=== PATIENT | female | born 1995 | race Caucasian/White ===

== ENCOUNTER 2019-02-07 19:13 | Emergency (ER) | payer BC, OTHER | END 2019-02-07 21:00 | disposition home or self-care (01) | LOC: EEVIPCON 19:13 → ERS 19:13 | DX: O99.89 Other specified diseases and conditions complicating pregnancy, childbirth and the puerperium (principal); M26.602 Left temporomandibular joint disorder, unspecified; O99.512 Diseases of the respiratory system complicating pregnancy, second trimester; J45.909 Unspecified asthma, uncomplicated; O99.332 Smoking (tobacco) complicating pregnancy, second trimester; F17.210 Nicotine dependence, cigarettes, uncomplicated; O99.342 Other mental disorders complicating pregnancy, second trimester; F41.9 Anxiety disorder, unspecified; Z3A.19 19 weeks gestation of pregnancy | CPT/HCPCS: 99282 ==

== ENCOUNTER 2019-04-18 16:24 | Emergency (ER) | payer BC, OTHER | END 2019-04-18 17:55 | disposition home or self-care (01) | LOC: ERS 16:24 | DX: O99.89 Other specified diseases and conditions complicating pregnancy, childbirth and the puerperium (principal); H66.92 Otitis media, unspecified, left ear; O99.512 Diseases of the respiratory system complicating pregnancy, second trimester; J45.909 Unspecified asthma, uncomplicated; O99.342 Other mental disorders complicating pregnancy, second trimester; F41.9 Anxiety disorder, unspecified; Z87.891 Personal history of nicotine dependence; Z3A.28 28 weeks gestation of pregnancy | CPT/HCPCS: 99283 ==

== ENCOUNTER 2019-05-02 16:46 | Day surgery (SDC) | payer BC, OTHER ==
[2019-05-02 17:17] VITALS: BMI 36.5
[2019-05-02] MEDS ORDERED: hydrALAZINE 20 MG/ML VIAL SLOW IVP PRN (17:42)
[2019-05-02 17:56] LABS: #Eosinphils 0.1 thou/uL (0.0-0.7); #Lymphocytes 2.6 thou/uL (1.20-3.40); #Monocytes 0.5 thou/uL (0.11-0.59); #Neutrophils 6.7 thou/uL (1.40-6.50); %Basophils 0.4 % (0.0-1.0); %Eosinophils 0.9 % (0.0-10.0); %Lymphocytes 26.3 % (21.0-51.0); %Monocytes 4.9 % (0.0-10.0); %Neutrophils 67.5 % (42.0-75.0); Hemoglobin 11.5 g/dL (12.0-16.0); Mean Corpuscular HGB CONC 34.9 g/dL (32.0-36.0); Mean Corpuscular Hemoglobin 31.3 pg (27.0-31.0); Mean Corpuscular Volume 89.8 fL (78.0-98.0); Mean Platelet Volume 7.6 fL (7.4-10.4); Platelet Count 211 thou/uL (130-400); RBC Distribution Width 11.7 % (11.5-14.5); Red Blood Cell (RBC) Count 3.67 mill/uL (4.20-5.40); White Blood Cell (WBC) Count 9.9 thou/uL (4.8-10.8)
--- NOTE | 2019-05-02 18:11 | HP ---
TIME OF EVALUATION: 1735 hours. LOCATION: Labor and Delivery Triage in bed A. REASON FOR EVALUATION/CHIEF COMPLAINT: Here for BP observation from Dr. Davis's office. HISTORY OF PRESENT ILLNESS: This is a 24-year-old , G2, P1 with an EGA of 30 weeks and 3 days with an EDC of July 08, 2019. She is here because her blood pressure in the office with Dr. Davis was 140s/80s. The patient states that she has been taking her blood pressure at home and in there, about 150s over 80s to 90s. She denies headache, right upper quadrant pain, vaginal bleeding, contractions, leakage of fluid, and she has good movement. She states that she was taking aspirin early on in the , but she stopped due to nosebleed and did not resume. PAST MEDICAL HISTORY: Significant for asthma, migraines, and anxiety. MEDICATIONS: None. PAST SURGICAL HISTORY: Tonsil and adenoids. ALLERGIES: NONE. SOCIAL HISTORY: Negative for alcohol, tobacco, and drug use. PHYSICAL EXAMINATION: VITAL SIGNS: Her blood pressure is 139/75 and 129/71. Pulse is normal in the 90s and she is afebrile. Respirations are 16 to 18, and they are not labored. I evaluated the patient at bedside and find her in no acute distress. ABDOMEN: Soft and nontender. CERVICAL: Exam was deferred. There is no labor complaint. On monitor, heart tones are in the 130s to 140s and are compatible with a 30-week gestation (moderate variability and small accelerations). There was one isolated minor variable deceleration that was not recurrent. There were no contractions on tocodynamometer. Interventions ordered. I have ordered a CBC, CMP, urine protein-creatinine ratio, serial blood pressures. ASSESSMENT: This is a 24-year-old G2, P1, at 38 weeks and 3 days with likely gestational hypertension versus other. There is no evidence of severe criteria at this time. PLAN: 1. Blood pressure management reviewed with her. 2. I discussed with her the ACOG indications for delivery due to blood pressure (severe criteria). 3. I have discussed with her the labs ordered and reason why. 4. Blood pressure observation for now. If there is not severe criteria, we could likely follow her up as an outpatient. Job ID: [id number]
[2019-05-02 18:19] LABS: ALT (SGPT) 11 U/L (8-55); AST (SGOT) 14 U/L (5-34); Albumin 3.3 g/dL (3.5-5.0); Alkaline Phosphatase 70 U/L (40-110); Anion Gap 12 mmol/L (10-20); BUN (Urea Nitrogen) 4 mg/dL (7.0-18.7); Bilirubin, Total 0.7 mg/dL (0.2-1.2); Calc. Creatinine Clearance 221 mL/min (70-130); Calcium 8.4 mg/dL (7.8-10.44); Carbon Dioxide 23 mmol/L (22-29); Chloride 105 mmol/L (98-107); Estimated GFR-MDRD Greater than 90; Glucose 78 mg/dL (70-105); Potassium 3.3 mmol/L (3.5-5.1); Protein, Total 6.3 g/dL (6.0-8.3); Sodium 137 mmol/L (136-145)
--- NOTE | 2019-05-02 19:35 | PDOC.EVN ---
Event Note - Event Note Event Note: BPs all ok labs ok Check U protein/CR result as outpatient
[2019-05-02 20:22] LABS: Creatinine, Urine 30.73 mg/dL (47-110); Protein, Urine Random Quant Less than 10 mg/dL (1-14)
[2019-05-03] MEDS ORDERED: FLU VACC QS2019-20(6MOS UP)/PF 60 MCG/0.5 ML SYRINGE IM ONE (09:00)
== END 2019-05-02 20:00 | disposition home or self-care (01) ==
LOC: L&D/OP 16:46
PROVIDERS: ATTEND Obstetrics & Gynecology
DX: O99.89 Other specified diseases and conditions complicating pregnancy, childbirth and the puerperium (principal); R03.0 Elevated blood-pressure reading, without diagnosis of hypertension; Z3A.30 30 weeks gestation of pregnancy
CPT/HCPCS: 36415; 80053; 82570; 84156; 85025; 99283

== ENCOUNTER 2019-05-03 18:49 | Day surgery (SDC) | payer BC, OTHER ==
[2019-05-03 19:23] VITALS: BP 132/74; TEMP 98.4
[2019-05-03 19:26] VITALS: BMI 36.6
[2019-05-03] MEDS ORDERED: hydrALAZINE 20 MG/ML VIAL SLOW IVP PRN (20:04)
--- NOTE | 2019-05-04 08:20 | SS ---
DATE OF ADMISSION: 05/03/2019 DATE OF DISCHARGE: 05/03/2019 TIME OF SERVICE: 2030 hours. PRESENTING COMPLAINT: Elevated blood pressure to 150/90 at home. HISTORY OF PRESENT ILLNESS: Ms. Walden is a 24-year-old 2, para 1, at 30 weeks and 4 days with ALEXI of 07/08/19. She has a history of preeclampsia with a delivery at 37 weeks of previous . She has been seen by Dr. Davis. She was initially started on baby aspirin daily because of risk of recurrent preeclampsia. However, the patient self discontinued secondary to epistaxis. She was noted in the office on the to be at 148/84, reported some intermittent blood pressures to 140s/50s over 80s to 90s and was sent to Labor and delivery for evaluation on the . Thorough evaluation was carried out at that time, which revealed the patient to be normotensive, normal urine [id number] ratio, normal CBC, normal comprehensive metabolic panel. The patient had one 150/90 at home today and presented to Labor and Delivery. STAFFING OPERATIONS MANAGER HISTORY: As noted. Blood type A positive, antibody negative. Pap negative. Rubella immune. VDRL nonreactive. Hepatitis B, GC, chlamydia negative. The patient has a history of herpes and will be started on acyclovir at 36 weeks for prophylaxis. PAST MEDICAL HISTORY: Significant for migraines and herpes and asthma. PAST SURGICAL HISTORY: None. ALLERGIES: NSAIDS. SOCIAL HISTORY: The patient is a tobacco user outside of . FAMILY HISTORY: Noncontributory. REVIEW OF SYSTEMS: Noncontributory. PHYSICAL EXAMINATION: GENERAL: White female resting comfortably, blood pressure 132/86, pulse 85, respirations 18, temperature 98.6. HEENT: Within normal limits. LUNGS: Clear to auscultation bilaterally. HEART: Regular rhythm. ABDOMEN: Soft, nontender without rebound or guarding. PELVIC: Deferred. EXTREMITIES: No clubbing, cyanosis, or edema. DTRs 1+. The patient has trace pedal edema. Serial monitoring was carried out which revealed a category 1 heart rate tracing. No decelerations, category I. Serial blood pressures reveal blood pressures in the 120s to 130s with diastolics in the 80s. IMPRESSION: Isolated elevated blood pressures at home without any criteria for preeclampsia noted on thorough evaluation less than 24 hours ago. PLAN: Discharge home. Continue BPs at home. ER precautions for severe range blood pressures. Keep scheduled followup with Dr. Davis. Job ID: [id number]
== END 2019-05-03 20:34 | disposition home health service (06) ==
LOC: L&D/OP 18:49
PROVIDERS: ATTEND Obstetrics & Gynecology
DX: O99.89 Other specified diseases and conditions complicating pregnancy, childbirth and the puerperium (principal); R03.0 Elevated blood-pressure reading, without diagnosis of hypertension; O99.513 Diseases of the respiratory system complicating pregnancy, third trimester; J45.909 Unspecified asthma, uncomplicated; O99.343 Other mental disorders complicating pregnancy, third trimester; G43.909 Migraine, unspecified, not intractable, without status migrainosus; Z3A.30 30 weeks gestation of pregnancy; Z87.891 Personal history of nicotine dependence; Z88.6 Allergy status to analgesic agent
CPT/HCPCS: 99282

== ENCOUNTER 2019-05-07 18:33 | Day surgery (SDC) | payer BC, OTHER ==
[2019-05-07 19:03] VITALS: BMI 36.6
[2019-05-07] MEDS ORDERED: hydrALAZINE 20 MG/ML VIAL SLOW IVP PRN (19:19)
[2019-05-07 19:46] LABS: Amnisure Test No Membranes Rupture (No Rupture)
[2019-05-07 19:48] LABS: Amnisure Internal Control QC ACCEPTABLE (ACCEPTABLE)
--- NOTE | 2019-05-07 20:04 | PDOC.LDHP ---
Labor and Delivery H&P Chief complaint: loss of fluid, other (BP check) HPI: 24 y/o at 31w1d, patient of Dr. Davis, presents for BP check and ?LOF. Patient reports a BP of 140s at home. Has been seen several times in the last week for similar issues with no e/o preeclampsia. Also complains of thin, watery discharge that "smells funny" and thinks her water may be broken. Denies VB, ctx, or decreased FM. ROS neg for HEENT, cv, pulm, gi, gu, neuro, psych, skin, musculoskeletal or constitutional symptoms other than mentioned above. OB History Details: 1 prior term complicated by preeclampsia Current complications: other (HSV) Past Medical History: Asthma, HSV, anxiety, migraines Current medications: pre- vitamins Previous surgical history: none Allergies/Adverse Reactions: Allergies Allergy/AdvReac Type Severity Reaction Status Date / Time No Known Allergies Allergy Verified 05/07/19 19:04 Social history: none - Physical Exam Vital signs reviewed and normal: yes General: NAD, resting Lungs: nonlabored breathing Abdomen: gravid Extremeties: no edema FHT: category 1 (140s, mod variability, + accels, no decels) [place] contractions every: none - Vaginal Exam cm dilated: 0 (neg pooling, valsalva) - Assessment 24 y/o at 31w1d with no e/o preeclampsia. All normal BPs here. No e/o SROM (neg amnisure, neg pooling, neg valsalva). VP3 pending. - Plan -: D/c home with precautions. Will notify patient if VP3 results indicated need for treatment. Has appt for , advised to keep.
== END 2019-05-07 20:08 | disposition home or self-care (01) ==
LOC: L&D/OP 18:33
PROVIDERS: ATTEND Obstetrics & Gynecology
DX: O99.89 Other specified diseases and conditions complicating pregnancy, childbirth and the puerperium (principal); R03.0 Elevated blood-pressure reading, without diagnosis of hypertension; O98.513 Other viral diseases complicating pregnancy, third trimester; B00.9 Herpesviral infection, unspecified; Z3A.31 31 weeks gestation of pregnancy
CPT/HCPCS: 84112; 87480; 87510; 87660

== ENCOUNTER 2019-05-08 20:02 | Inpatient (IN) | payer BC, OTHER ==
[2019-05-08 20:38] VITALS: BMI 36.6
[2019-05-08] MEDS ORDERED: hydrALAZINE 20 MG/ML VIAL SLOW IVP PRN (20:53)
[2019-05-08] MEDS ORDERED: Promethazine HCl 25 MG/ML VIAL IM PRN (20:53)
[2019-05-08] MEDS ORDERED: Ondansetron PF 4 MG/2 ML Vial IVP PRN (20:53)
[2019-05-08 21:28] LABS: Amphetamine Not Detected (NotDetected); Barbiturates Screen Not Detected (NotDetected); Benzodiazepine Screen Not Detected (NotDetected); Cocaine Metabolite Screen Not Detected (NotDetected); Medtox Control Line Valid? VALID (VALID); Medtox Reader # READER 1; Methadone Not Detected (NotDetected); Methamphetamine Not Detected (NotDetected); Opiate Screen Not Detected (NotDetected); Oxycodone Screen Not Detected (NotDetected); Phencyclidine (PCP) Not Detected (NotDetected); THC/Cannabinoid Screen Not Detected (NotDetected); Tricyclic Screen Not Detected (NotDetected)
--- NOTE | 2019-05-08 21:40 | HP ---
TIME OF ADMISSION: 2100 hours. REASON FOR ADMISSION: Headache, possible mild early preeclampsia versus gestational hypertension at 31 weeks gestation, repeat presentation to the unit. HISTORY OF PRESENT ILLNESS: Ms. Walden is a 24-year-old 2, para 1, with an EDC of 07/08. She sees Dr. Carolina Davis at [facility]. The patient has serially re-presented to the labor and delivery unit over the past two weeks, complaining of headache, but with objective laboratory and blood pressure findings not consistent with preeclampsia. She presents again this evening, claiming that blood pressure at home was up to 150/100 and she has a mild to moderate headache. She denies scotoma. She denies seizure. Previous evaluations have revealed there do to be a little if any protein in her urine. COURT INTERPRETER HISTORY: Preeclampsia with delivery at 37 weeks of previous . The patient was started on baby aspirin, but stopped in the early second trimester secondary to epistaxis. She also has a history of herpes and we placed on prophylaxis at 36 weeks gestation. Blood type is A positive, antibody negative. Pap negative. Rubella immune. VDRL nonreactive. Hepatitis B, GC, chlamydia negative. Group B strep not done. PAST MEDICAL HISTORY: Significant for migraines and asthma. PAST SURGICAL HISTORY: None. ALLERGIES: NSAIDS. MEDICATIONS: vitamins. SOCIAL HISTORY: Positive history of tobacco use outside of . FAMILY HISTORY: Noncontributory. REVIEW OF SYSTEMS: Noncontributory. PHYSICAL EXAMINATION: GENERAL: White female, resting comfortably. VITAL SIGNS: Temperature 98.8, respirations 18, pulse 92, blood pressures on admission were between 130 and 140 systolic and 80s to 86 diastolic. HEENT: Within normal limits. LUNGS: Clear to auscultation bilaterally. HEART: Regular rate and rhythm. ABDOMEN: Soft, nontender. No rebound or guarding. Vulva without lesions. Vaginal exam deferred. EXTREMITIES: No clubbing, cyanosis, or edema. DTRs 1+. heart rate tracing was carried out for greater than 30 minutes which revealed a category 1 tracing with no decelerations. IMPRESSION: The patient with history of preeclampsia, now at 31 weeks gestation. The patient keeps having elevated blood pressures at home with mild to moderate headaches and a history of migraines, but without objective findings consistent with severe preeclampsia upon presentation to labor and delivery unit. PLAN: Admission, serial blood pressures, ultrasound, 24-hour urine. Tylenol for headache. We will administer magnesium sulfate prophylaxis and betamethasone for lung maturity if signs of true preeclampsia are found during hospitalization. Job ID: [id number]
[2019-05-08] MEDS: Acetaminophen 500 MG TAB PO PRN (22:06)
--- NOTE | 2019-05-08 22:08 | ULT ---
EXAM: Limited OB ultrasound COMPARISON: None HISTORY: female patient. Gestational hypertension. TECHNIQUE: Multiplanar grayscale and color Doppler transabdominal sonographic images are obtained. FINDINGS: There is a single intrauterine gestation in cephalic presentation. Cardiac Doppler demonstr ates heart tones with a heart rate of 141 beats per minute. The placenta is located anteriorly without evidence of placenta previa. Amniotic fluid index measures 8.7 cm which is diminis hed. The cervix is obscured by shadowing from the head. biometry measurements: BPD 7.9 cm -- 31 weeks 5 days HC 29.55 cm -- 32 weeks 5 days AC 28.38 cm -- 32 weeks 3 days FL 6.16 cm -- 32 weeks The estimated gestational age by ultrasound is 32 weeks 2 days with an ALEXI on07/01/2019. Gestational a ge by the last menstrual period is 31 weeks 2 days. The estimated weight by ultrasound is 1931 g (4 pounds, 4 ounces). This represents 70 percentil e for weight. This examination was not performed for evaluation of the anatomical structures. IMPRESSION: 1. Single intrauterine gestation in cephalic presentation with heart tones documented. Estimat ed gestational age by ultrasound is 32 weeks 2 days. 2. Estimated weight is 1931 g (4 pounds, 4 ounces). 3. Amniotic fluid index is diminished measuring 8.7 centimeters.
[2019-05-08 22:20] LABS: Hemoglobin 12.1 g/dL (12.0-16.0); Mean Corpuscular Hemoglobin 30.7 pg (27.0-31.0); Mean Corpuscular Volume 90.4 fL (78.0-98.0); Mean Platelet Volume 8.5 fL (7.4-10.4); Platelet Count 185 thou/uL (130-400); RBC Distribution Width 11.7 % (11.5-14.5); Red Blood Cell (RBC) Count 3.93 mill/uL (4.20-5.40); White Blood Cell (WBC) Count 9.2 thou/uL (4.8-10.8)
[2019-05-08] MEDS ORDERED: Lactated Ringer's 1,000 ML IV SCH (22:30)
[2019-05-08 23:00] LABS: Syphilis Antibody Nonreactive (Nonreactive); Syphilis Antibody Index 0.05 S/CO (<1.00 Non-Reactive)
[2019-05-08 23:11] LABS: ALT (SGPT) 11 U/L (8-55); AST (SGOT) 14 U/L (5-34); Albumin 3.5 g/dL (3.5-5.0); Alkaline Phosphatase 85 U/L (40-110); Anion Gap 14 mmol/L (10-20); BUN (Urea Nitrogen) Less than 4 mg/dL (7.0-18.7); Bilirubin, Total 0.6 mg/dL (0.2-1.2); Calc. Creatinine Clearance 244 mL/min (70-130); Calcium 8.6 mg/dL (7.8-10.44); Carbon Dioxide 24 mmol/L (22-29); Chloride 104 mmol/L (98-107); Estimated GFR-MDRD Greater than 90; Globulin 2.8 g/dL (2.4-3.5); Glucose 80 mg/dL (70-105); Potassium 3.6 mmol/L (3.5-5.1); Protein, Total 6.3 g/dL (6.0-8.3); Sodium 138 mmol/L (136-145)
[2019-05-09 00:29] LABS: HBSAg Index 0.22 S/CO (0-0.99); HIV (1/2) Antibody/Antigen Non-Reactive (NonReactive); HIV 1/2 INDEX 0.12 S/CO (<1.00); Hep B Surf Ag Non-Reactive S/CO (NonReactive)
--- NOTE | 2019-05-09 07:10 | PRG ---
DATE OF SERVICE: 05/09/2019 TIME OF SERVICE: 0655 hours. The patient is resting comfortably. Serial blood pressures on the floor have been less than 140s/90s with most of them in the 110s to 120s over 80s. She denies worsening of her headache. Reports an active fetus. FHTs are 140s. A 24-hour urine collection in progress. Spot urine protein was negative. IMPRESSION: History of preeclampsia at 31 weeks' gestation with history of chronic headaches/migraine with headache. The patient reports severe blood pressures at home, but blood pressures in hospital are within normal limits. PLAN: Continued observation in the [place], finished 24 hour urine. Likely discharge home after a 24-hour urine evaluation with more serial blood pressures. We will check the patient out to Dr. Aguilar for further care at 0800 hours on 05/09. Job ID: [id number]
[2019-05-09] MEDS: Acetaminophen 500 MG TAB PO PRN ×2 (12:14→19:56)
[2019-05-10 06:36] LABS: Urine Total Volume 5025 mL (600-1600)
[2019-05-10 06:49] LABS: Protein, Urine Less than 10 mg/dL (1-14)
--- NOTE | 2019-05-10 07:43 | DIS ---
DATE OF ADMISSION: 05/08/2019 DATE OF DISCHARGE: 05/10/2019 ADMITTING DIAGNOSES: 1. Intrauterine at 31 weeks. 2. History of preeclampsia. 3. Headache. 4. Elevated pressures at home. DISCHARGE DIAGNOSES: 1. Intrauterine at 31 weeks. 2. History of preeclampsia. 3. Headache. 4. Elevated pressures at home. PROCEDURES: None. CONSULTATIONS: None. HOSPITAL COURSE: The patient is a 24-year-old, G2, P1, female with an intrauterine at 31 weeks and history of preeclampsia, presenting with complaints of headache and elevated pressures at home at 150/100. The patient has re-presented twice now to Labor and Delivery with the same complaints. The patient was admitted for 24-hour urine collection and protein and blood pressure monitoring. During her stay, pressures have remained in the normal range with her highest pressure being 124/72. Blood pressure currently is 103/55. Her 24-hour urine collection is back and reports negative protein. This morning, the patient reports she has an appointment with Dr. Davis at 8:15 that we have encouraged that she keep. PHYSICAL EXAMINATION: VITAL SIGNS: Blood pressure is currently 103/55, temperature 98.7, pulse of 93, respiratory rate of 16, and saturating 96% on room air. GENERAL: She appears to be in no acute distress. She is alert and oriented, cooperative and pleasant to interact with. HEENT: Head is normocephalic, atraumatic. PIH labs are all within normal limits including a negative 24-hour urine collection. The patient is being discharged home to see Dr. Davis in clinic this morning to follow up with a plan of care. The patient has no evidence of preeclampsia at this time and anticipate routine follow up. Job ID: [id number]
[2019-05-10 08:05] VITALS: BP 115/66; TEMP 97.8
== END 2019-05-10 08:08 | disposition home or self-care (01) | DRG 833 ==
LOC: L&D/OP 20:02 → L&D 20:45 → 3SW 05-09 01:31
PROVIDERS: ADMIT Obstetrics & Gynecology; ATTEND Obstetrics & Gynecology
DX: O16.3 Unspecified maternal hypertension, third trimester (principal); Z3A.31 31 weeks gestation of pregnancy; G43.909 Migraine, unspecified, not intractable, without status migrainosus; O26.893 Other specified pregnancy related conditions, third trimester
CPT/HCPCS: 36415; 59025; 76815; 80053; 80306; 81003; 84112; 84156; 85027; 86780; 86850; 86900; 86901; 87340; 87389; 87480; 87510; 87660; 99285

== ENCOUNTER 2019-05-14 13:24 | Day surgery (SDC) | payer BC, OTHER ==
[2019-05-14 13:51] VITALS: BP 127/76; TEMP 97.5
[2019-05-14 13:52] VITALS: BMI 36.6
[2019-05-14] MEDS ORDERED: hydrALAZINE 20 MG/ML VIAL SLOW IVP PRN (14:42)
[2019-05-14 15:09] LABS: Bilirubin Negative (Negative); Blood, Urine Negative (Negative); Clarity Clear (Clear); Glucose, Urine (Dipstick) Normal (Negative); Leukocyte 75 Leu/uL (Negative); Nitrite Negative (Negative); Protein, Urine (Dipstick) Negative (Neg-Trace); RBC/HPF 0-3 HPF (0-3); Squamous Epithelial 0-3 HPF (0-3); Urobilinogen Normal mg/dL (Less than 2); WBC/HPF 0-3 HPF (0-3)
[2019-05-14 15:13] LABS: Bacteria/HPF 1+ HPF (None Seen)
[2019-05-14 15:20] LABS: Hemoglobin 12.7 g/dL (12.0-16.0); Mean Corpuscular Hemoglobin 30.5 pg (27.0-31.0); Mean Corpuscular Volume 89.9 fL (78.0-98.0); Mean Platelet Volume 8.1 fL (7.4-10.4); Platelet Count 208 thou/uL (130-400); RBC Distribution Width 11.8 % (11.5-14.5); Red Blood Cell (RBC) Count 4.16 mill/uL (4.20-5.40); White Blood Cell (WBC) Count 10.2 thou/uL (4.8-10.8)
[2019-05-14 15:43] LABS: ALT (SGPT) 13 U/L (8-55); AST (SGOT) 16 U/L (5-34); Albumin 3.5 g/dL (3.5-5.0); Alkaline Phosphatase 94 U/L (40-110); Anion Gap 11 mmol/L (10-20); BUN (Urea Nitrogen) 4 mg/dL (7.0-18.7); Bilirubin, Total 0.6 mg/dL (0.2-1.2); Calc. Creatinine Clearance 236 mL/min (70-130); Calcium 8.8 mg/dL (7.8-10.44); Carbon Dioxide 28 mmol/L (22-29); Chloride 102 mmol/L (98-107); Estimated GFR-MDRD Greater than 90; Globulin 3.3 g/dL (2.4-3.5); Glucose 71 mg/dL (70-105); Potassium 3.6 mmol/L (3.5-5.1); Protein, Total 6.8 g/dL (6.0-8.3); Sodium 137 mmol/L (136-145)
--- NOTE | 2019-05-15 02:02 | SS ---
DATE OF ADMISSION: 05/14/2019 DATE OF DISCHARGE: 05/14/2019 REGULAR PHYSICIAN: Carolina Davis MD CHIEF COMPLAINT: Elevated blood pressure at home. HISTORY OF PRESENT ILLNESS: Ms. Walden is a 24-year-old white G2, P1, with an estimated date of confinement of 07/08/2018, who presents complaining of elevated blood pressures at home. She states the blood pressures are 140s over 90s. She denies visual changes or right upper quadrant pain. Of note is the fact that she sees Dr. Davis and has been here before for similar symptoms. PAST OBSTETRICAL HISTORY: Includes one vaginal delivery at 37 weeks for elevated blood pressures. PAST MEDICAL HISTORY: None. PAST SURGICAL HISTORY: Tonsillectomy. CURRENT MEDICATIONS: vitamins. ALLERGIES: NO KNOWN ALLERGIES. SOCIAL HISTORY: Denies tobacco, alcohol, or drug use. PHYSICAL EXAMINATION: VITAL SIGNS: Serial blood pressures are 127/76, 128/80, 131/79, 127/76, and 124/73. GENERAL: She is pleasant. She is in no acute distress. heart rate tracing is stable. There are no decelerations. No significant uterine contractions were seen. LABORATORY DATA: White count 10.2, hemoglobin and hematocrit are 12.7 and 37.4, and platelet count 208,000. Creatinine 0.62. Total bilirubin 0.6, AST 16, and ALT 13. Urinalysis shows specific gravity of 1.003 with negative protein, normal glucose, negative ketones, negative blood, negative nitrites. ASSESSMENT: 1. A 32 week intrauterine . 2. No evidence of preeclampsia at this time. PLAN: Patient has been dismissed to home. PI precautions were reviewed with her in detail. She has a followup appointment with Dr. Davis this week. Job ID: [id number]
[2019-05-15] MEDS ORDERED: FLU VACC QS2019-20(6MOS UP)/PF 60 MCG/0.5 ML SYRINGE IM ONE (09:00)
== END 2019-05-14 16:14 | disposition home health service (06) ==
LOC: L&D/OP 13:24
PROVIDERS: ATTEND Obstetrics & Gynecology
DX: O99.89 Other specified diseases and conditions complicating pregnancy, childbirth and the puerperium (principal); R03.0 Elevated blood-pressure reading, without diagnosis of hypertension; Z3A.32 32 weeks gestation of pregnancy
CPT/HCPCS: 36415; 80053; 81003; 81015; 85027; 99283

== ENCOUNTER → 2019-05-25 | Day surgery (SDC) | payer BC, OTHER ==
[~2019-05-25] MED LIST: hydrALAZINE 20 MG/ML VIAL SLOW IVP PRN
[2019-05-25 21:09] VITALS: BMI 36.1
--- NOTE | 2019-05-25 21:56 | PDOC.LDHP ---
Labor and Delivery H&P Chief complaint: other (elevated BP) HPI: 4YO @ 33.5 WGA (ALEXI 07/08/19) who presents to L&D for 2 elevated BPs at home with associated headache, dizziness and nausea that began around 17:30 this evening. Reports a h/o gestational HTN with her last and this one and routinely checks her BP 4x/day at home. Began to have a headache around 17:30 which prompted her to check her BP and she noted that it was elevated at 147/92. She waited about 30 minutes and rechecked it and it was still elevated at 138/91 so she called L&D who recommended she come in for an evaluation. Reports her headache has improved since her arrival. Reports regular movement. Denies any LOF or vaginal bleeding but has had increased vaginal discharge over the last several days. Has had regular contractions since Thrusday morning that began to get closer together and stronger over the course of today as well. No RUQ pain, LE edema, chest pain or increased SOB. Current gestational age (weeks): 33 (33.5) Due date: 07/08/19 Grav: 2 Para: 1 Current complications: gestational hypertension Past Medical History: asthma Current medications: pre- vitamins Previous surgical history: none (tonsillectomy and adenoidectomy) Allergies/Adverse Reactions: Allergies Allergy/AdvReac Type Severity Reaction Status Date / Time No Known Allergies Allergy Verified 05/08/19 20:35 Social history: none - Physical Exam Vital signs reviewed and normal: yes General: NAD, resting, breathing through contractions Heart: RRR Lungs: CTAB Abdomen: gravid Extremeties: no edema FHT: category 1 [place] contractions every: was venkata every 3-5 minutes initially but becoming less frequent - Vaginal Exam cm dilated: 0 (0.5) Effacement: 0% Station: -3 - OB Labs GBS: unknown - Plan Plan: observation in L&D -: 24YO @ 33.5 WGA (ALEXI 07/08/19) with a h/o gestational HTN not on any medication who presented to L&D for 2 elevated BPs at home with associated increased frequency and intensity of contractions. Gestational HTN w/ 2 elevated readings at home: - BP has been WNLs since arrival & headache has also improved. - FHTs reassuring with baseline in the 130s & multiple accels noted, reactive NST. - Contractions were initially regular but have spaced out significantly since arrival. - SVE @ 23:39 0.5/TH/H. FFN obtained prior to exam and will send to assess risk for labor. Dispo: Will continue external monitoring for a minimum of 2 hours. Addendum - Attending - Attending Attestation Date/Time: 05/28/19 0818 I personally evaluated the patient and discussed the management with Dr. Kwan I agree with the History, Examination, Assessment and Plan documented above with any addition or exceptions noted below. vitals: 122/74 68 98.0 sve 0.5/th/hi ffn neg BP remain with in normal limits over 2hours of monitoring dc home with precautions f/u with Dr Zaragoza
[2019-05-26 00:18] LABS: FFN Internal QC Analyzer PASS (PASS); FFN Internal QC Cassette PASS (PASS); Fetal Fibronectin Negative (Negative)
--- NOTE | 2019-05-26 00:53 | PDOC.BPN ---
- Brief Progress Note 24YO @ 33.6 WGA (ALEXI 07/08/19) with a h/o gestational HTN not on any medication who presented to L&D for 2 elevated BPs at home with associated increased frequency and intensity of contractions. Gestational HTN w/ 2 elevated readings at home: - BP has been WNLs since arrival FHTs reassuring with baseline in the 130s & multiple accels noted, reactive NST. - Contractions were initially regular but have spaced out significantly since arrival. - SVE @ 23:39 0.5/TH/H. FFN negative so unlikely to go into labor. Dispo: Will send home with instructions to keep follow-up appointment with PCP for 05/28/19 as scheduled.
== END | disposition home or self-care (01) ==
LOC: L&D/OP 20:33
PROVIDERS: ATTEND Obstetrics & Gynecology
DX: O13.3 Gestational [pregnancy-induced] hypertension without significant proteinuria, third trimester (principal); O47.03 False labor before 37 completed weeks of gestation, third trimester; Z3A.33 33 weeks gestation of pregnancy
CPT/HCPCS: 82731

== ENCOUNTER 2019-06-06 15:12 | Day surgery (SDC) | payer BC, OTHER ==
[2019-06-06 15:48] VITALS: BMI 36.9
[2019-06-06 16:06] VITALS: BP 129/72; TEMP 98.7
[2019-06-06] MEDS ORDERED: hydrALAZINE 20 MG/ML VIAL SLOW IVP PRN (17:35)
[2019-06-06] MEDS ORDERED: diphenhydrAMINE 50 MG/ML VIAL IVP PRN (17:36)
[2019-06-06] MEDS ORDERED: Lactated Ringer's 1,000 ML IV SCH (17:45)
[2019-06-06] MEDS: Metoclopramide HCl 10 MG/2 ML VIAL IVP PRN ×2 (18:08→18:51)
--- NOTE | 2019-06-06 19:05 | PRG ---
DATE OF SERVICE: 06/06/2019 PRIMARY OB: Carolina Davis MD CHIEF COMPLAINT: Headache and blurry vision, and elevated blood pressures. HISTORY OF PRESENT ILLNESS: The patient is a 24-year-old, G2, P1 female with an intrauterine at 35 weeks and 3 days, presenting to Labor and Delivery from the house with complaints of headache and blurry vision with blood pressures reported at home in the 140s/90s. The patient had called her office and was sent here for evaluation. The patient reports that she does have chronic headaches, but this one did not feel like a migraine and was feeling a little bit different. She denies any fever. She denies chest pain or shortness of breath. The patient did have some nausea with one episode of vomiting. She denies diarrhea, constipation, hip problems, knee problems, muscle weakness, vaginal bleeding, leakage of fluid, urinary urgency, or frequency. The patient is exhibiting some light sensitivity. PAST MEDICAL HISTORY: Asthma, migraines, herpes. She has a history of preeclampsia with her previous . ALLERGIES: NSAIDS IT CAUSES ABDOMINAL PAIN. MEDICATIONS: Daily aspirin 81 mg and vitamins. SOCIAL HISTORY: Denies drug, alcohol, or tobacco use. LABORATORY DATA: Blood type is A positive. Antibody screen is negative. Hepatitis B surface antigen is negative. VDRL is negative. One-hour Glucola 98. Third trimester VDRL is nonreactive. REVIEW OF SYSTEMS: Per HPI. PHYSICAL EXAMINATION: VITAL SIGNS: Blood pressure on arrival 122/74, heart rate of 68, temperature 98.0, respiratory rate of 20. She has been here now for about 2 hours and blood pressures remained within normal limits. GENERAL: She is alert and oriented, cooperative, and pleasant to interact with. HEAD: Normocephalic, atraumatic. LUNGS: Clear to auscultation bilaterally. HEART: Has a regular rate and rhythm. ABDOMEN: Gravid, soft, nontender. EXTREMITIES: Nontender, nonedematous. DTRs are 1+. : Exam has been deferred. heart tracing shows the fetus with a baseline in the 120s with moderate long-term variability, positive 15 x 15 accelerations. Tocometer showing contractions about every 5 to 6 minutes with some irritability in between. ASSESSMENT AND PLAN: The patient is a 24-year-old G2, P1 female with intrauterine at 35 weeks and 3 days, here for concerns of headache and vision changes with a recorded blood pressure elevations at home. We have not been able to duplicate those blood pressures here. She has had normal blood pressures. In reviewing her history, it sounds the patient may be experiencing a migraine, perhaps not as she typically experiences it, but she is exhibiting headache with vision changes and light sensitivity. No evidence of preeclampsia. We will be treating her with Reglan and Benadryl empirically to see if this helps her headache resolve. By note, she does say her headache has improved since she first arrived spontaneously, but she does continue to exhibit light sensitivity. Once she has successfully treated for her headache, we will re-evaluate and likely send her home with instructions to follow up with her primary OB as scheduled. Fetus has a category 1 tracing and reactive NST. Job ID: [id number]
[2019-06-06 19:25] LABS: Bacteria/HPF None Seen HPF (None Seen); Bilirubin Negative (Negative); Blood, Urine Negative (Negative); Clarity Clear (Clear); Glucose, Urine (Dipstick) Normal (Negative); Leukocyte 25 Leu/uL (Negative); Nitrite Negative (Negative); Protein, Urine (Dipstick) Negative (Neg-Trace); RBC/HPF 0-3 HPF (0-3); Squamous Epithelial 0-3 HPF (0-3); Urobilinogen Normal mg/dL (Less than 2); WBC/HPF 0-3 HPF (0-3)
== END 2019-06-06 20:00 | disposition home or self-care (01) ==
LOC: L&D/OP 15:12
PROVIDERS: ATTEND Obstetrics & Gynecology
DX: O99.89 Other specified diseases and conditions complicating pregnancy, childbirth and the puerperium (principal); R03.0 Elevated blood-pressure reading, without diagnosis of hypertension; R51 Headache; H53.8 Other visual disturbances; Z3A.35 35 weeks gestation of pregnancy
CPT/HCPCS: 81001; J1200; J2765

== ENCOUNTER 2019-06-12 15:39 | Day surgery (SDC) | payer BC, OTHER | END 2019-06-12 17:05 | disposition home or self-care (01) | LOC: L&D/OP 15:39 | PROVIDERS: ATTEND Obstetrics & Gynecology | DX: O99.89 Other specified diseases and conditions complicating pregnancy, childbirth and the puerperium (principal); R03.0 Elevated blood-pressure reading, without diagnosis of hypertension; R51 Headache; Z3A.00 Weeks of gestation of pregnancy not specified | CPT/HCPCS: 87081; 99283 ==

== ENCOUNTER 2019-06-19 14:12 | Inpatient (IN) | payer BC, OTHER ==
[~2019-06-19 14:12] MED LIST changes: +Bupivacaine PF 0.5% 30 ML VIAL ONE; -hydrALAZINE 20 MG/ML VIAL SLOW IVP PRN
[2019-06-19] MEDS ORDERED: Butorphanol Tartrate 1 MG/ML VIAL SLOW IVP PRN (19:23)
[2019-06-19] MEDS ORDERED: hydrALAZINE 20 MG/ML VIAL SLOW IVP PRN (19:23)
[2019-06-19] MEDS ORDERED: Diphenoxylate HCl/Atropine Tablet PO PRN ×2 (19:23)
[2019-06-19] MEDS ORDERED: Carboprost 250 MCG/ML AMP IM PRN (19:23)
[2019-06-19] MEDS ORDERED: Ondansetron PF 4 MG/2 ML Vial IVP PRN (19:23)
[2019-06-19] MEDS ORDERED: Acetaminophen 500 MG TAB PO PRN (19:23)
[2019-06-19] MEDS ORDERED: Zolpidem Tartrate 5 MG TAB PO PRN (19:23)
[2019-06-19] MEDS ORDERED: Promethazine HCl 25 MG/ML VIAL IM PRN (19:23)
[2019-06-19] MEDS ORDERED: NS / Oxytocin 40 units/1000ml 1,000 ML IV PRN (19:23)
[2019-06-19] MEDS ORDERED: Lidocaine 1% (PF) 30 ML VIAL SC PRN (19:23)
[2019-06-19] MEDS ORDERED: Misoprostol 200 MCG TAB PR PRN (19:23)
[2019-06-19] MEDS ORDERED: HYDROcodone/Acetaminophen 5/325 mg Tablet PO PRN (19:23)
[2019-06-19] MEDS ORDERED: Ibuprofen 800 MG TAB PO PRN (19:23)
[2019-06-19] MEDS ORDERED: NS w/ Oxytocin 10 units 500 ML IV SCH (19:45)
[2019-06-19] MEDS ORDERED: Misoprostol 100 MCG TAB VAG SCH (20:00)
[2019-06-19] MEDS: Lactated Ringer's 1,000 ML IV SCH (20:00)
[2019-06-19 20:06] VITALS: BMI 36.9
[2019-06-19 20:25] LABS: Mean Corpuscular HGB CONC 34.1 g/dL (32.0-36.0); Mean Corpuscular Hemoglobin 30.3 pg (27.0-31.0); Mean Corpuscular Volume 88.9 fL (78.0-98.0); Mean Platelet Volume 9.2 fL (7.4-10.4); Platelet Count 188 thou/uL (130-400); RBC Distribution Width 11.7 % (11.5-14.5); Red Blood Cell (RBC) Count 3.96 mill/uL (4.20-5.40); White Blood Cell (WBC) Count 10.2 thou/uL (4.8-10.8)
[2019-06-19 20:44] LABS: ALT (SGPT) 14 U/L (8-55); AST (SGOT) 20 U/L (5-34); Albumin 3.3 g/dL (3.5-5.0); Alkaline Phosphatase 144 U/L (40-110); Anion Gap 13 mmol/L (10-20); BUN (Urea Nitrogen) 6 mg/dL (7.0-18.7); Bilirubin, Total 0.5 mg/dL (0.2-1.2); Calc. Creatinine Clearance 235 mL/min (70-130); Calcium 8.3 mg/dL (7.8-10.44); Carbon Dioxide 20 mmol/L (22-29); Chloride 104 mmol/L (98-107); Estimated GFR-MDRD Greater than 90; Globulin 2.7 g/dL (2.4-3.5); Glucose 94 mg/dL (70-105); Potassium 3.4 mmol/L (3.5-5.1); Sodium 134 mmol/L (136-145)
[2019-06-19 21:04] LABS: Syphilis Antibody Nonreactive (Nonreactive); Syphilis Antibody Index 0.05 S/CO (<1.00 Non-Reactive)
[2019-06-19 22:27] LABS: HBSAg Index 0.11 S/CO (0-0.99); Hep B Surf Ag Non-Reactive S/CO (NonReactive)
[2019-06-20] MEDS ORDERED: Fentanyl 4 mcg/Bup 0.1% Cadd 100 ML ONE (06:14)
[2019-06-20] MEDS: Lactated Ringer's 1,000 ML IV SCH ×2 (06:53)
[2019-06-20] MEDS ORDERED: Acetaminophen 325 MG TAB PO PRN (06:57)
[2019-06-20] MEDS ORDERED: Naloxone HCl 0.4 mg/ml Vial IVP PRN ×2 (06:57)
[2019-06-20] MEDS ORDERED: Lactated Ringer's 500 ML IV PRN (06:57)
[2019-06-20] MEDS ORDERED: ePHEDrine/0.9% NaCl/PF SYRINGE 50 mg/10 ml SLOW IVP PRN (06:57)
[2019-06-20] MEDS ORDERED: diphenhydrAMINE 50 MG/ML VIAL IVP PRN (06:57)
[2019-06-20] MEDS ORDERED: Promethazine HCl 25 MG/ML VIAL IM PRN (06:57)
[2019-06-20] MEDS ORDERED: Ondansetron PF 4 MG/2 ML Vial IVP PRN (06:57)
[2019-06-20] MEDS ORDERED: Communication Order-Pharmacy FS SCH (07:00)
[2019-06-20] MEDS ORDERED: Fentanyl 4 mcg/Bupivacaine 0.1% Cassette 100 ML EPIDURAL SCH (07:00)
[2019-06-20] MEDS ORDERED: Lidocaine 1% (PF) 30 ML VIAL ONE (07:43)
[2019-06-20] MEDS ORDERED: NS / Oxytocin 40 units/1000ml 1,000 ML ONE (07:43)
[2019-06-20] MEDS ORDERED: Misoprostol 200 MCG TAB ONE (07:44)
[2019-06-20] MEDS ORDERED: Acetaminophen/Codeine 30-300mg Tablet PO PRN ×2 (08:07)
[2019-06-20] MEDS ORDERED: Adacel (T-DAP) 0.5 ML SYRINGE IM ONE (08:07)
[2019-06-20] MEDS ORDERED: Preparation H Ointment 28 GM TUBE PR PRN (08:07)
[2019-06-20] MEDS ORDERED: Benzocaine-Menthol 82.5 ML CAN TOP PRN (08:07)
[2019-06-20] MEDS ORDERED: Milk Of Magnesia 30 ML UDCUP PO PRN (08:07)
[2019-06-20] MEDS ORDERED: hydrALAZINE 20 MG/ML VIAL SLOW IVP PRN (08:07)
[2019-06-20] MEDS ORDERED: Bisacodyl 10 MG SUPP PR PRN (08:07)
[2019-06-20] MEDS ORDERED: diphenhydrAMINE 25 MG CAP PO PRN (08:07)
--- NOTE | 2019-06-20 08:10 | PDOC.OPDEL ---
OB Operative/Delivery Note Delivery Dr/Surgeon: Susan Pre-Delivery Diagnosis: medically indicated induction Procedure/Post Delivery Dx: spontaneous vaginal delivery Weeks gestation: 37 Anesthesia: epidural - Findings A Sex: female - 1 min: 9 - 5 min: 9 - Additional Findings/Plan Placenta delivered: spontaneous Repaired Obstetrical Laceration: none Estimated blood loss: 25ml Post delivery plan: routine recovery
[2019-06-20] MEDS ORDERED: NS / Oxytocin 40 units/1000ml 1,000 ML IV SCH (08:15)
[2019-06-20] MEDS ORDERED: FLU VACC QS2019-20(6MOS UP)/PF 60 MCG/0.5 ML SYRINGE IM ONE (09:00)
[2019-06-20] MEDS: Prenatal Vitamin 1 TAB PO SCH (11:48)
[2019-06-20] MEDS: Docusate Calcium (SURFAK) 240 MG CAP PO SCH ×2 (11:48→21:58)
[2019-06-20] MEDS: Ibuprofen 800 MG TAB PO SCH ×2 (15:00→21:58)
[2019-06-20] MEDS: Ferrous Sulfate 325 MG TAB PO SCH (17:43)
[2019-06-21] MEDS: Ibuprofen 800 MG TAB PO SCH (05:22)
--- NOTE | 2019-06-21 07:57 | PDOC.PP ---
Post Progress Note Post Day #: 1 PO intake tolerated: yes Flatus: yes Ambulation: yes Vital Signs (12 hours) Temp Pulse Resp BP Pulse Ox 06/21/19 05:10 98.2 F 58 L 18 99/61 06/21/19 01:00 98.1 F 64 18 121/77 06/20/19 20:30 99 Weight Weight 236 lb Result Diagrams: 06/19/19 19:55 06/19/19 19:55 Additional Labs: Post Labs Blood Type A POSITIVE 06/19/19 19:55 Hep Bs Antigen Non-Reactive S/CO (NonReactive) 06/19/19 19:55 - Assessment/Plan Doing well post day 1. Multip. D/c home if baby released. Follow up 6 week.
[2019-06-21 08:07] VITALS: BP 116/74; TEMP 97.8
[2019-06-21] MEDS: Ferrous Sulfate 325 MG TAB PO SCH (10:00)
[2019-06-21] MEDS: Docusate Calcium (SURFAK) 240 MG CAP PO SCH (10:01)
[2019-06-21] MEDS: Prenatal Vitamin 1 TAB PO SCH (10:01)
== END 2019-06-21 13:00 | disposition home or self-care (01) | DRG 807 ==
LOC: L&D 19:07 → 3SW 06-20 10:55
PROVIDERS: ADMIT Obstetrics & Gynecology; ATTEND Obstetrics & Gynecology
PROC: 10E0XZZ Delivery of Products of Conception, External Approach (ICD-10-PCS; principal; 2019-06-20)
PROC: 3E033VJ Introduction of Other Hormone into Peripheral Vein, Percutaneous Approach (ICD-10-PCS; 2019-06-20)
DX: O13.4 Gestational [pregnancy-induced] hypertension without significant proteinuria, complicating childbirth (principal); Z37.0 Single live birth; Z3A.37 37 weeks gestation of pregnancy
CPT/HCPCS: 36415; 51702; 80053; 85027; 86780; 86850; 86900; 86901; 87340; J2001; J2590; S0020